=== PATIENT | male | born 1975 | race Caucasian/White ===

== ENCOUNTER → 2020-08-03 | Outpatient (CLI) | payer OTHER ==
[~2020-08-03] MED LIST: MULT-445 PO; OMEG100021 PO; OMEP20CA16 PO
== END ==
LOC: LAB 12:09
PROVIDERS: ATTEND Surgery
DX: Z01.812 Encounter for preprocedural laboratory examination (principal); K40.20 Bilateral inguinal hernia, without obstruction or gangrene, not specified as recurrent; Z20.822 Contact with and (suspected) exposure to COVID-19
CPT/HCPCS: U0003

== ENCOUNTER 2020-08-06 06:31 | Day surgery (SDC) | payer OTHER ==
[~2020-08-06] VITALS: Ht 73 cm; Wt 88.5 kg
[~2020-08-06 06:31] MED LIST changes: +ACETAMINOPHEN 500 MG TABLET PO ONE; +HYDROmorphone 2 MG/ML VIAL IVP PRN; +IV RINGERS,LACTATED 1000ML 1,000 ML IV SCH; +MORPHINE SULFATE 2 MG/ML VIAL. IVP PRN; +PROCHLORPERAZINE 10 MG/2 ML VIAL. IVP PRN; +fentaNYL PF VIAL 100 MCG/2 ML VIAL IVP PRN
[2020-08-06] MEDS ORDERED: MINERAL OIL for SURGERY 10 ML VIAL. MC ONE ×2 (07:01→07:15)
[2020-08-06] MEDS ORDERED: BUPIVACAINE-EPI 0.25% 30 ML VIAL KIT. ONE (07:01)
[2020-08-06] MEDS ORDERED: PROPOFOL 10 MG/ML (20ML) VIAL. IV ONE (07:19)
[2020-08-06] MEDS ORDERED: LIDOCAINE 2% PF 5 ML VIAL. ONE (07:19)
[2020-08-06] MEDS ORDERED: ROCURONIUM 50 MG/5 ML VIAL. ONE (07:19)
[2020-08-06] MEDS ORDERED: DEXAMETHASONE SOD PHOS 4 MG/ML VIAL ONE (07:21)
[2020-08-06] MEDS ORDERED: ONDANSETRON PF 4 MG/2 ML VIAL. ONE (07:21)
--- NOTE | 2020-08-06 07:23 | PDOC1 ---
History and Physical Date of Admission Date of Admission DATE: 08/06/20 TIME: 07:20 Identification/Chief Complaint Chief Complaint Bilateral groin pain Source Source: Patient History of Present Illness History of Present Illness 45-year-old male who had bilateral inguinal hernia repairs by open in May 2019 is subsequently developed pain in both groins and ultrasound was done which showed small inguinal hernias bilaterally with incarcerated fat Past Medical History Cardiovascular: No pertinent hx Pulmonary: No pertinent hx GI: GERD, Other (Hiatal hernia) Heme/Onc: No pertinent hx Hepatobiliary: No pertinent hx Psych: No pertinent hx Rheumatologic: No pertinent hx Infectious disease: No pertinent hx ENT: No pertinent hx Renal/: No pertinent hx Endocrine: No pertinent hx Dermatology: No pertinent hx Past Surgical History Past Surgical History: Hernia Repair Family History Family History: No Significant Social History Smoke: No ALCOHOL: none Drugs: None Current Medications Current Medications Current Medications Fentanyl Citrate (Fentanyl 2ml Vial) 25 mcg PRN Q5MIN PRN IVP MILD PAIN 1-3; Start 08/06/20 at 06:00; Stop 08/07/20 at 05:59 Fentanyl Citrate (Fentanyl 2ml Vial) 50 mcg PRN Q5MIN PRN IVP MODERATE PAIN 4- 6; Start 08/06/20 at 06:00; Stop 08/07/20 at 05:59 Morphine Sulfate (Morphine Sulfate) 1 mg PRN Q10MIN PRN IVP SEVERE PAIN 7-10; Start 08/06/20 at 06:00; Stop 08/07/20 at 05:59 Ringer's Solution 1,000 ml @ 30 mls/hr Q24H IV ; Start 08/06/20 at 06:00; Stop 08/06/20 at 17:59 Hydromorphone HCl (Dilaudid) 0.5 mg PRN Q10MIN PRN IVP SEVERE PAIN 7-10, 2nd CHOICE; Start 08/06/20 at 06:00; Stop 08/07/20 at 05:59 Prochlorperazine Edisylate (Compazine) 5 mg PACU PRN PRN IVP NAUSEA, MRX1; Start 08/06/20 at 06:00; Stop 08/07/20 at 05:59 Acetaminophen (Tylenol) 1,000 mg ONCE ONCE PO Last administered on 08/06/20at 07:17; Start 08/06/20 at 06:00; Stop 08/06/20 at 06:01; Status DC Cefazolin Sodium/ Dextrose 50 ml @ 100 mls/hr 1X ONCE IV ; Start 08/06/20 at 06:00; Stop 08/06/20 at 06:29; Status DC Bupivacaine HCl/ Epinephrine Bitart (Sensorcain-Epi 0.25% Kit) 30 ml STK-MED ONCE .ROUTE ; Start 08/06/20 at 07:01; Stop 08/06/20 at 07:01; Status DC Mineral Oil (Muri-Lube) 10 ml STK-MED ONCE MC ; Start 08/06/20 at 07:01; Stop 08/06/20 at 07:01; Status DC Mineral Oil (Muri-Lube) 10 ml 1X ONCE MC ; Start 08/06/20 at 07:15; Stop 08/06/20 at 07:16; Status DC Lidocaine HCl (Lidocaine Pf 2% Vial) 5 ml STK-MED ONCE .ROUTE ; Start 08/06/20 at 07:19; Stop 08/06/20 at 07:19; Status DC Propofol (Diprivan) 200 mg STK-MED ONCE IV ; Start 08/06/20 at 07:19; Stop at 07:19; Status DC Rocuronium [place] (Zemuron) 50 mg STK-MED ONCE .ROUTE ; Start 08/06/20 at 07:19; Stop 08/06/20 at 07:19; Status DC Active Scripts Active Reported Fish Oil 1,000 mg Softgel ([place]-3/Dha/Epa/Fish Oil) 1,000 Mg Capsule 1,000 Mg PO DAILY06 Multivitamins (Multivitamin) 1 Each Tablet 1 Tab PO DAILY Omeprazole 20 Mg Capsule.dr 1 Cap PO DAILY06 Allergies Allergies: Coded Allergies: No Known Drug Allergies (Unverified , 08/06/20) ROS Genitourinary: YES Other (Groin pain) Physical Exam General: Alert, Oriented X3, Cooperative, No acute distress HEENT: Atraumatic, EOMI Lungs: Clear to auscultation, Normal air movement Heart: RRR, no murmurs Abdomen: Normal bowel sounds, Soft, No tenderness Male Genitals Exam: other (Tenderness in bilateral groins) Rectal Exam: not examined Extremities: No edema Skin: No significant lesion Neuro: Normal speech Vitals Vitals Vital Signs Date Time Temp Pulse Resp B/P (MAP) Pulse Ox O2 Delivery O2 Flow Rate FiO2 08/06/20 07:14 97.8 60 20 112/75 99 Room Air 97.8 VTE Prophylaxis Ordered VTE Prophylaxis Devices: Yes VTE Pharmacological Prophylaxi: No Assessment/Plan Assessment/Plan Recurrent bilateral inguinal hernias Justifications for Admission Other Justification JOSSUE VIDES MD Aug 06, 2020 07:23
[2020-08-06] MEDS ORDERED: fentaNYL PF VIAL 100 MCG/2 ML VIAL ONE ×2 (07:34→09:03)
[2020-08-06] MEDS ORDERED: SUCCINYLCHOLINE 200 MG/10 ML VIAL. ONE (07:34)
[2020-08-06] MEDS ORDERED: GLYCOPYRROLATE 1 MG/5 ML VIAL. ONE (08:22)
[2020-08-06] MEDS ORDERED: NEOSTIGMINE METHYLSULFATE 5 MG/5 ML SYRINGE. ONE (08:22)
[2020-08-06] MEDS ORDERED: oxyCODONE/APAP 5/325 1 TAB TABLET PO ONE ×2 (08:30)
--- NOTE | 2020-08-06 08:46 | PDOC4 ---
Operative Note Operative Note Date: 08/06/2020 at 842 Preoperative diagnosis: Recurrent bilateral inguinal hernias Postoperative diagnosis: No hernias visualized adhesions to the left lower quadrant Procedure: Diagnostic laparoscopy with lysis of adhesions Surgeon: Aaron Specimen: None Dictation: Patient is a 45-year-old gentleman who had a bilateral open inguinal hernia repairs in May 2019 he subsequently developed bilateral groin pain ultrasound was done which was suggestive of recurrent bilateral inguinal hernias. The procedure of robotic assisted laparoscopic bilateral inguinal hernia repair with mesh was explained to the patient in detail risk-benefit were also discussed including bleeding infection injury to intra-abdominal contents possible necessitating further open operations alternatives to this procedure also discussed with patient who seemed to understand and gave both verbal and written consent to have the procedure performed. Patient was taken to the operating room placed in the supine position general anesthesia was initiated once patient was sleeping in bed is placed in low lithotomy positioning and his abdomen was prepped and draped usual sterile fashion using ChloraPrep. An area just above the umbilicus was injected with quarter percent Marcaine with epinephrine incision was made 11 blade scalpel and a varies needle was placed wi thin the abdomen creating pneumoperitoneum once this was complete a millimeter da Herbert port was placed and the camera was placed within the abdomen the abdomen and pelvis were inspected it was noted that in the right groin there appeared to be no hernia. Previous mesh could be seen to the peritoneum again no defect was noted the left side was also visualized and again the mesh could be seen through the peritoneum without any evidence of a defect was noted on the left side there was some adhesions to the colon. 8 mm da Herbert port was placed in left midabdomen and a 8 mm da Herbert ports placed in the right midabdomen. Surgeon went to the robotic console using a grasper and Endo Gerardo scissors the adhesions in the left lower abdomen were taken down. The groin areas were again probed with a Tobin grasper there were no weaknesses or defects noted. Pictures of the area were taken. The pneumoperitoneum was then reduced all ports were removed all port sites were closed for subcuticular Monocryl Mastisol Steri-Strips and island dressings were applied. Patient was awakened and extubated in the operating room taken to recovery in stable condition all sponge instrument needle counts listed as correct estimated blood loss 5 mL. JOSSUE VIDES MD Aug 06, 2020 08:46
--- NOTE | 2020-08-06 08:48 | DISCH ---
DISCHARGE INSTRUCTIONS Condition on Discharge Condition on Discharge: Stable Activity After Discharge Activity Instructions for Disc: Avoid exertion Other activity instructions: No lifting more than 20 pounds for 2 weeks Diet after Discharge Diet after Discharge: Regular Wound Incision Care Other wound/incision instructi: Shower in 24 hours Contacting the DRWilla after DC Call your doctor for: If your condition worsens Follow-Up Follow up with: Dr. Vides in 2 weeks JOSSUE VIDES MD Aug 06, 2020 08:48
[2020-08-06] MEDS ORDERED: OXYC-325 PO ×2 (09:18→09:19)
[2020-08-06 09:45] VITALS: BP 111/74
== END 2020-08-06 10:15 | disposition home or self-care (01) ==
LOC: SURG 06:31 → MERGE 08:00 → SURG 10:15
PROVIDERS: ATTEND Surgery
DX: K40.20 Bilateral inguinal hernia, without obstruction or gangrene, not specified as recurrent (principal); K21.9 Gastro-esophageal reflux disease without esophagitis; M19.90 Unspecified osteoarthritis, unspecified site; Z79.899 Other long term (current) drug therapy; Z98.890 Other specified postprocedural states; Z72.89 Other problems related to lifestyle
CPT/HCPCS: 49320; A4314; A4364; A4930; A6219; J0330; J0690; J1100; J2405; J2704; J2710; J3010; J3490; S2900